=== PATIENT | female | born 1945 | race Two or more races ===

== ENCOUNTER 2018-12-08 13:01 | Observation (INO) | payer OTHER ==
[2018-12-08 13:31] VITALS: BMI 32.5
[2018-12-08 16:13] LABS: BASO % 0.5 % (0-2.0); EOS % 4.3 % (0-4.5); HEMATOCRIT 35.5 % (32.4-45.2); HEMOGLOBIN 11.8 GM/dL (10.7-15.3); MCH 30.4 pg (25.7-33.7); MCHC 33.1 g/dl (32.0-36.0); MEAN CELL VOLUME 91.6 fl (80-96); MEAN PLT VOLUME 11.3 fl (7.5-11.1); MONO % 11.6 % (3.8-10.2); NEUT % 56.6 % (42.8-82.8); PLATELET COUNT 112 K/MM3 (134-434); RBC 3.88 M/mm3 (3.60-5.2); WHITE BLOOD COUNT 6.4 K/mm3 (4.0-10.0)
--- NOTE | 2018-12-08 16:30 | PDOC ---
Documentation entered by Swapnil Karimi SCRIBE, acting as scribe for Ismael Oates MD. Ismael Oates MD: This documentation has been prepared by the Sachi khan Xhesika, SCRIBE, under my direction and personally reviewed by me in its entirety. I confirm that the documentation accurately reflects all work, treatment, procedures, and medical decision making performed by me. History of Present Illness - General Chief Complaint: Chest Pain Stated Complaint: CHEST PAIN Time Seen by Provider: 12/08/18 15:27 History Source: Patient Exam Limitations: No Limitations, Language Barrier (patient is lithuanian speaking ) - History of Present Illness Initial Comments: 12/08/18 15:45 The patient is a 73 year old female, with a significant PMH of COPD, HTN, HLD , and hypothyroidism who presents to the emergency department with L sided chest pain since last night. The patient states the chest pain is nonpleuritic, non radiating, and began last night suddenly after eating. The patient states her chest pain kept her from sleeping, however, the pain eventually subsided before starting again at 11am. The patient denies shortness of breath, headache and dizziness. Denies fever, chills, nausea, vomiting, diarrhea and constipation. Denies dysuria, frequency, urgency and hematuria. Allergies: NKDA PCP: Francie Claros Past History - Past Medical History Allergies/Adverse Reactions: Allergies Allergy/AdvReac Type Severity Reaction Status Date / Time No Known Allergies Allergy Verified 12/08/18 13:20 COPD: No Diabetes: Yes HTN: Yes Hypercholesterolemia: Yes Thyroid Disease: Yes - Suicide/Smoking/Psychosocial Hx Smoking History: Never smoked Have you smoked in the past 12 months: No Information on smoking cessation initiated: No Hx Alcohol Use: No Drug/Substance Use Hx: No Review of Systems - Review of Systems Able to Perform ROS?: Yes Comments:: 12/08/18 15:46 GENERAL/CONSTITUTIONAL: No fever or chills. No weakness. HEAD, EYES, EARS, NOSE AND THROAT: No change in vision. No ear pain or discharge. No sore throat. CARDIOVASCULAR: (+) L sided chest pain. No shortness of breath. RESPIRATORY: No cough, wheezing, or hemoptysis. GASTROINTESTINAL: No nausea, vomiting, diarrhea or constipation. GENITOURINARY: No dysuria, frequency, or change in urination. MUSCULOSKELETAL: No joint or muscle swelling or pain. No neck or back pain. SKIN: No rash NEUROLOGIC: No headache, vertigo, loss of consciousness, or change in strength/ sensation. ENDOCRINE: No increased thirst. No abnormal weight change. HEMATOLOGIC/LYMPHATIC: No anemia, easy bleeding, or history of blood clots. ALLERGIC/IMMUNOLOGIC: No hives or skin allergy. *Physical Exam - Vital Signs Last Vital Signs Temp Pulse Resp BP Pulse Ox 97.9 F 71 16 138/58 L 100 12/08/18 13:15 12/08/18 13:15 12/08/18 13:15 12/08/18 13:15 12/08/18 13:15 - Physical Exam Comments: 12/08/18 16:21 "GENERAL: Awake, alert, and fully oriented, in no acute distress. HEAD: No signs of trauma EYES: PERRLA, EOMI, sclera anicteric, conjunctiva clear ENT: Auricles normal inspection, hearing grossly normal, nares patent, oropharynx clear without exudates. Moist mucosa NECK: Nontender, no stepoffs, Normal ROM, supple, no lymphadenopathy, JVD, or masses LUNGS: Breath sounds equal, clear to auscultation bilaterally. No wheezes, and no crackles HEART: Regular rate and rhythm, normal S1 and S2, no murmurs, rubs or gallops ABDOMEN: Soft, nontender, normoactive bowel sounds. No guarding, no rebound. No masses EXTREMITIES: Normal range of motion, no edema. No clubbing or cyanosis. No cords, erythema, or tenderness NEUROLOGICAL: Cranial nerves II through XII intact. 5/5 strength and sensation in all extremities, Normal speech, normal gait, normal cerebellar function SKIN: Warm, Dry, normal turgor, no rashes or lesions noted. Heart Score/ECG Review - History History: Moderately suspicious - Electrocardiogram EKG: Non specific repolarization disturbance - Age Age: >/= 65 - Risk Factors Risk Factors Heart Score: Yes Hx Hypercholesterolemia, Yes Hx Hypertension, Yes Hx Diabetes, Yes Hx Obesity Based on the list above the patient has:: >/=3 risk factors or Hx atherosclerotic disease - Troponin Troponin: </= normal limit - Score Heart Score - Total: 6 - ECG Impressions Comment:: 12/08/18 16:22 AV paced, rate 65, QTc wnl, no EDVIN/STDs, TWI in lateral leads ED Treatment Course - LABORATORY CBC & Chemistry Diagram: 12/08/18 15:45 12/08/18 15:45 - RADIOLOGY Radiology Studies Ordered: Category Date Time Status CHEST X-RAY PORTABLE* [RAD] Stat Radiology 12/08/18 15:28 Taken Medical Decision Making - Medical Decision Making 12/08/18 16:26 73 F with L sided chest pain. Will need to r/o ACS given risk factors and abnormal EKG. Pt with no pleuritic chest pain or SOB to suggest PE. No LE edema to suggest volume overload. - Labs, trop - CXR - Admit 12/08/18 17:21 Labs wnl, trop negative x1 Attempted to reach Dr. Cooper for admission - no longer accepting pts at this time Will admit to [facility] 12/08/18 17:31 Pt signed out to ZIYAD Garcia *DC/Admit/Observation/Transfer Diagnosis at time of Disposition: Chest pain - Discharge Dispostion Decision to Admit order: Yes - Referrals Referrals: Francie Caro MD [Primary Care Provider] - - Patient Instructions - Post Discharge Activity - Attestations Physician Attestion: 12/08/18 17:22 I, Dr. Ismael Oates MD, attest that this document has been prepared under my direction and personally reviewed by me in its entirety. I further attest, that it accurately reflects all work, treatment, procedures and medical decision -making performed by me.
[2018-12-08 16:56] LABS: ALBUMIN 4.5 g/dl (3.4-5.0); ALK PHOS 117 U/L (45-117); ANION GAP 4 MMOL/L (8-16); BILIRUBIN,TOTAL 0.6 mg/dL (0.2-1); BLOOD UREA NITROGEN 28 mg/dL (7-18); CALCIUM 9.8 mg/dL (8.5-10.1); CHLORIDE 108 mmol/L (98-107); CO2 29 mmol/L (21-32); CREATININE 1.4 mg/dL (0.55-1.3); GLUCOSE,RANDOM 61 mg/dL (74-106); N-TERMINAL BNP 153.6 pg/ml (5-125); POTASSIUM 4.8 mmol/L (3.5-5.1); SGOT/AST 40 U/L (15-37); SGPT/ALT 37 U/L (13-61); SODIUM 140 mmol/L (136-145); TOT PROT 7.8 g/dl (6.4-8.2)
[2018-12-08] MEDS ORDERED: ACETAMINOPHEN 1000 MG/100 ML VIAL (NON FORMULARY) IVPB ONE (17:06)
[2018-12-08] MEDS ORDERED: ACETAMINOPHEN INJECTION 100 ML IVPB ONE (17:17)
--- NOTE | 2018-12-08 17:50 | HP ---
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 The patient states the chest pain is nonpleuritic, radiating to back, and began yesterday after she was carrying a heavy object. The patient states it resolved but then woke her from sleep and then again resolved. It began again at 11am, she had an appointment with Dr Li she stated that he did not think it "was her heart" She then came to the ED because it persisited. Patient stated the battery for her PPM was changed last week. The patient denies shortness of breath, headache and dizziness. Denies fever, chills, nausea, vomiting, diarrhea and constipation. History Source: Patient Limitations to Obtaining History: No Limitations - Past Medical History Cardiovascular: Yes: HTN, Hyperlipdemia, Other (2nd degree AVB w/ PPM 1980, battery replaced last week) Pulmonary: Yes: COPD Endocrine: Yes: Hyperthyroidism - Past Surgical History Past Surgical History: Yes: Permanent Pacemaker (1980) - Smoking History Smoking history: Never smoked Have you smoked in the past 12 months: No - Alcohol/Substance Use Hx Alcohol Use: No - Social History Usual Living Arrangement: Yes: With Spouse ADL: Independent History of Recent Travel: No Home Medications - Allergies Allergies/Adverse Reactions: Allergies Allergy/AdvReac Type Severity Reaction Status Date / Time No Known Allergies Allergy Verified 12/08/18 13:20 Family Disease History - Family Disease History Family History: Unable to Obtain Review of Systems - Review of Systems Constitutional: reports: No Symptoms Eyes: reports: No Symptoms HENT: reports: Difficult Swallowing (secondary to dry mouth) Neck: reports: No Symptoms Cardiovascular: reports: Chest Pain (radiating to right thoracic area) Respiratory: reports: No Symptoms Gastrointestinal: reports: Indigestion Genitourinary: reports: No Symptoms Breasts: reports: No Symptoms Reported Musculoskeletal: reports: Muscle Pain (left thoracic) Integumentary: reports: No Symptoms Neurological: reports: No Symptoms Endocrine: reports: No Symptoms Hematology/Lymphatic: reports: No Symptoms Psychiatric: reports: No Symptoms Physical Examination Vital Signs: Vital Signs Temperature 97.9 F 12/08/18 13:15 Pulse Rate 71 12/08/18 13:15 Respiratory Rate 16 12/08/18 13:15 Blood Pressure 138/58 L 12/08/18 13:15 O2 Sat by Pulse Oximetry (%) 99 12/08/18 16:03 Constitutional: Yes: Well Nourished, No Distress, Calm Eyes: Yes: WNL, Conjunctiva Clear, EOM Intact HENT: Yes: WNL, Atraumatic Neck: Yes: WNL, Supple, Trachea Midline Cardiovascular: Yes: WNL, Regular Rate and Rhythm, Bradycardia, Other (PPM to left) Respiratory: Yes: WNL, Regular, CTA Bilaterally Gastrointestinal: Yes: WNL, Normal Bowel Sounds, Soft Breast(s): Yes: WNL Musculoskeletal: Yes: Muscle Pain (to left thoracic area) Extremities: Yes: WNL Edema: No Peripheral Pulses WNL: Yes Integumentary: Yes: WNL Neurological: Yes: WNL, Alert, Oriented ...Motor Strength: WNL Psychiatric: Yes: WNL, Alert, Oriented Labs: CBC, BMP 12/08/18 15:45 12/08/18 15:45 Imaging - Results Chest X-ray: Report Reviewed, Image Reviewed (PPM, no ellufsion, no infiltartes noted) EKG: Report Reviewed, Image Reviewed (AV paced, rate 65, QTc wnl, TWI in lateral leads) Other: Report Reviewed (TTE 12/08 EF 55-60%, mild TR) Problem List - Problems (1) Musculoskeletal chest pain Assessment/Plan: tylenol/motrin PRN for left thoracic pain -if pain persists can order flexeril Code(s): R07.89 - OTHER CHEST PAIN (2) Chest pain Assessment/Plan: cardiac vs musculoskeletal in nature -ekg AV paced, rate 65, QTc wnl, TWI in lateral leads -trop negative, repeat in 12 hours -PPM AV paced -maintain home dose of eliquis Code(s): R07.9 - CHEST PAIN, UNSPECIFIED (3) Hypothyroidism Assessment/Plan: continue home dose of synthroid send TSH Code(s): E03.9 - HYPOTHYROIDISM, UNSPECIFIED (4) HTN (hypertension) Assessment/Plan: HTN, normotensive continue home dose of losartan Code(s): I10 - ESSENTIAL (PRIMARY) HYPERTENSION (5) Diabetes Assessment/Plan: NIDDM contine home dose of glyberide BGM AC/qhs novolog insulin sliding scale Code(s): E11.9 - TYPE 2 DIABETES MELLITUS WITHOUT COMPLICATIONS (6) Prophylactic measure Assessment/Plan: FEN cardiac diet monitor electrolytes Prophy ambulatory Dispo maintain as in patient full code Code(s): Z29.9 - ENCOUNTER FOR PROPHYLACTIC MEASURES, UNSPECIFIED Visit type - Emergency Visit Emergency Visit: Yes ED Registration Date: 12/08/18 Care time: The patient presented to the Emergency Department on the above date and was hospitalized for further evaluation of their emergent condition. - New Patient This patient is new to me today: Yes Date on this admission: 12/08/18 - Critical Care Critical Care patient: No
[2018-12-08] MEDS ORDERED: IBUPROFEN 600 MG TABLET (FP) PO PRN (18:27)
[2018-12-08] MEDS ORDERED: APIXABAN 5 MG TABLET PO ONE (21:40)
[2018-12-08] MEDS: APIXABAN 5 MG TABLET PO SCH (21:43)
[2018-12-08] MEDS ORDERED: APIXABAN 5 MG TABLET PO SCH (22:00)
[2018-12-09 06:07] LABS: BASO % 1.3 % (0-2.0); EOS % 4.9 % (0-4.5); HEMATOCRIT 34.8 % (32.4-45.2); HEMOGLOBIN 11.6 GM/dL (10.7-15.3); LYMPH % 29.7 % (8-40); MCH 30.6 pg (25.7-33.7); MCHC 33.3 g/dl (32.0-36.0); MEAN CELL VOLUME 91.9 fl (80-96); MEAN PLT VOLUME 11.7 fl (7.5-11.1); MONO % 12.4 % (3.8-10.2); NEUT % 51.7 % (42.8-82.8); RBC 3.79 M/mm3 (3.60-5.2); RDW 13.4 % (11.6-15.6); WHITE BLOOD COUNT 5.6 K/mm3 (4.0-10.0)
[2018-12-09] MEDS: glyBURIDE 5 MG TABLET (UD) PO SCH ×2 (06:39→17:16)
[2018-12-09 06:44] LABS: ALBUMIN 3.8 g/dl (3.4-5.0); BILIRUBIN,TOTAL 0.6 mg/dL (0.2-1); CALCIUM 9.3 mg/dL (8.5-10.1); CREATININE 1.4 mg/dL (0.55-1.3); POTASSIUM 4.9 mmol/L (3.5-5.1); TOT PROT 6.9 g/dl (6.4-8.2)
[2018-12-09] MEDS ORDERED: LEVOTHYROXINE NA 125 MCG TABLET (FP) PO SCH (07:00)
--- NOTE | 2018-12-09 09:15 | PN ---
Progress Note, Physician Chief Complaint: 73F outpatient of [facility] seen in office yesterday with atypical CP. Sharp discomfort radiating to left shoulder. No SOB, palps, edema, syncope. ECG in office V- paced. Sent for outpatient Echo which was nl. Patient then went to ER for chest pain. TnI - x 2, CXR nl. Seen and examined in ER- now denies CP. Denies SOB. No fever, chills or cough. PMH: PAF s/p PPM on NOAC. HTN Hypothyroidism - Current Medication List Current Medications: Active Medications Apixaban (Eliquis -) 5 mg PO DAILY [facility] Last Admin: 12/08/18 21:43 Dose: 5 mg Glyburide (Diabeta -) 5 mg PO BIDAC [facility] Last Admin: 12/09/18 06:39 Dose: 5 mg Levothyroxine Sodium (Synthroid -) 125 mcg PO DAILY@0700 [facility] Last Admin: 12/09/18 06:39 Dose: 125 mcg Losartan Potassium (Cozaar -) 25 mg PO DAILY [facility] - Objective Vital Signs: Vital Signs Temperature 97.6 F 12/09/18 05:04 Pulse Rate 72 12/09/18 06:40 Respiratory Rate 20 12/09/18 06:40 Blood Pressure 136/62 12/09/18 06:40 O2 Sat by Pulse Oximetry (%) 100 12/09/18 06:40 Constitutional: Yes: No Distress Cardiovascular: Yes: Regular Rate and Rhythm Respiratory: Yes: CTA Bilaterally Gastrointestinal: Yes: Soft, Abdomen, Obese Edema: No Neurological: Yes: Alert Labs: CBC, BMP 12/09/18 05:35 12/09/18 05:35 Laboratory Tests 12/08/18 12/09/18 12/09/18 15:45 00:20 05:35 WBC 5.6 Hgb 11.6 Plt Count Pending Potassium Creatinine Troponin I < 0.02 < 0.02 B-Natriuretic Peptide 153.6 H 12/09/18 05:35 WBC Hgb Plt Count Potassium 4.9 Creatinine 1.4 H Troponin I B-Natriuretic Peptide - ....Imaging EKG: Image Reviewed (Paced, no acute changes) Assessment/Plan IMP: 1. PAF s/p PPM 2. Hypothyroidism 3. Atypical CP: cardiac enzymes negative REC: 1. Echo yesterday normal LV fx, no pericardial effusion. 2. CXR WNL 3. Plan for Lexiscan MPI today, further reccs to follow.
[2018-12-09 09:16] LABS: PLATELET COUNT 130.6 K/MM3 (134-434)
[2018-12-09] MEDS ORDERED: PT OWN MED DRAWER 7, Y5N ONE ×2 (09:29→16:46)
[2018-12-09] MEDS ORDERED: REGADENOSON 0.4 MG/5 ML PRE-FILLED SYRINGE IVPUSH ONE ×2 (09:45→10:23)
[2018-12-09] MEDS ORDERED: LOSARTAN POTASSIUM 50 MG TABLET (FP) PO SCH (10:00)
[2018-12-09] MEDS ORDERED: APIXABAN 5 MG TABLET PO SCH (10:00)
[2018-12-09] MEDS ORDERED: LOSARTAN POTASSIUM 25 MG TABLET PO SCH (10:00)
[2018-12-09] MEDS: APIXABAN 5 MG TABLET PO SCH (12:10)
[2018-12-09 12:13] VITALS: BP 130/63; PULSE 61; TEMP 97.7
[2018-12-09] MEDS ORDERED: INSULIN (NOVOLOG) ASPART 100 UNITS/ML 10ML VIAL ONE (12:13)
--- NOTE | 2018-12-09 12:26 | EKG ---
Test Reason : Blood Pressure : / mmHG Vent. Rate : 060 BPM Atrial Rate : 060 BPM P-R Int : 160 ms QRS Dur : 166 ms QT Int : 474 ms P-R-T Axes : 000 -54 087 degrees QTc Int : 474 ms AV dual-paced rhythm ABNORMAL ECG WHEN COMPARED WITH ECG OF 04-MAR-2004 13:33, VENT. RATE HAS DECREASED BY 43 BPM Confirmed by NICOLÁS NULL MD ([id number]) on 12/09/2018 12:25:43 PM Referred By: JEANNE HAYNES DR Confirmed By:NICOLÁS NULL MD
--- NOTE | 2018-12-09 14:06 | DS ---
Physical Examination Vital Signs: Vital Signs Temperature 97.7 F 12/09/18 12:11 Pulse Rate 61 12/09/18 12:11 Respiratory Rate 18 12/09/18 12:11 Blood Pressure 130/63 12/09/18 12:11 O2 Sat by Pulse Oximetry (%) 98 12/09/18 12:11 Constitutional: Yes: Calm Cardiovascular: Yes: Regular Rate and Rhythm, S1, S2 Respiratory: Yes: CTA Bilaterally Gastrointestinal: Yes: Normal Bowel Sounds, Soft Extremities: Yes: Other (calf pain in left side) Neurological: Yes: Alert, Oriented Labs: CBC, BMP 12/09/18 05:35 12/09/18 05:35 Discharge Summary Reason For Visit: CHEST PAIN Current Active Problems Chest pain (Acute) Diabetes (Acute) HTN (hypertension) (Acute) Hypothyroidism (Acute) Musculoskeletal chest pain (Acute) Prophylactic measure (Acute) Hospital Course: PCP: Francie Caro I - Admission Chief Complaint: chest pain History of Present Illness: The patient is a 73 year old female, with a significant PMH of COPD, HTN, HLD , 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 The patient states the chest pain is nonpleuritic, radiating to back, and began yesterday after she was carrying a heavy object. The patient states it resolved but then woke her from sleep and then again resolved. It began again at 11am, she had an appointment with Dr Li she stated that he did not think it "was her heart" She then came to the ED because it persisited. Patient stated the battery for her PPM was changed last week. The patient denies shortness of breath, headache and dizziness. Denies fever, chills, nausea, vomiting, diarrhea and constipation. patient admitted had ECHO and CXR unremarkable has rachna awaiting complaining of calf pain will order doppler r/o dvt - Instructions - Home Medications Comprehensive Discharge Medication List: Ambulatory Orders Alendronate Sodium/Vitamin D3 [Fosamax Plus D 70 mg-5,600 Iu vIT d] 1 tab PO DAILY 12/08/18 Apixaban [Eliquis] 5 mg PO DAILY 12/08/18 Fexofenadine/Pseudoephedrine [Arin-D 24 Hour Tablet] 1 tab PO DAILY 12/08/18 Glipizide [Glucotrol Xl] 5 mg PO DAILY 12/08/18 Levothyroxine [Synthroid -] 125 mcg PO DAILY 12/08/18 Losartan Potassium 25 mg PO DAILY 12/08/18
--- NOTE | 2018-12-09 14:09 | PN ---
Progress Note (short form) - Note Progress Note: admitted to observation telemetry got echo and cxr normal seen by cardiology plan awaiting results of lexiscan and duplex of the legs bc complaining of calf pain pending results of lexiscan will decide discharge
--- NOTE | 2018-12-10 08:49 | EKG ---
Test Reason : Blood Pressure : / mmHG Vent. Rate : 065 BPM Atrial Rate : 065 BPM P-R Int : 176 ms QRS Dur : 164 ms QT Int : 444 ms P-R-T Axes : 024 -54 090 degrees QTc Int : 461 ms Atrial-sensed ventricular-paced rhythm ABNORMAL ECG WHEN COMPARED WITH ECG OF 04-MAR-2004 13:33, VENT. RATE HAS DECREASED BY 38 BPM Confirmed by TARAN PENN, CRISTIN ([id number]) on 12/10/2018 8:48:49 AM Referred By: Confirmed By:CRISTIN CHIRINOS MD
== END 2018-12-09 17:17 | disposition home or self-care (01) ==
LOC: JER 13:01 → JERBED 17:22
PROVIDERS: ATTEND Nurse Practitioner Acute Care
PROC: 3E033NZ Introduction of Analgesics, Hypnotics, Sedatives into Peripheral Vein, Percutaneous Approach (ICD-10-PCS; principal; 2018-12-08)
PROC: 3E033GC Introduction of Other Therapeutic Substance into Peripheral Vein, Percutaneous Approach (ICD-10-PCS; 2018-12-08)
DX: R07.89 Other chest pain (principal); I10 Essential (primary) hypertension; E78.5 Hyperlipidemia, unspecified; E03.9 Hypothyroidism, unspecified; E11.9 Type 2 diabetes mellitus without complications; J44.9 Chronic obstructive pulmonary disease, unspecified; Z95.0 Presence of cardiac pacemaker
CPT/HCPCS: 36415; 71045-TC-FY; 78452-TC; 80048; 80053; 82550; 82553; 82962; 83880; 84443; 84484; 85025; 87081; 93005; 93010; 93017; 93970-TC; 96374; 96375; 99285-25; A9502; G0378; J0131; J2785

== ENCOUNTER 2021-09-26 14:44 | Inpatient (IN) | payer OTHER ==
[2021-09-26] MEDS ORDERED: ALBUTEROL SO4 2.5/IPRATROPIUM 0.5 INH SOL 3 ML VIAL.NEB. NEB ONE ×3 (15:58→18:33)
[2021-09-26] MEDS ORDERED: methylPREDNISolone NA SUCC 125 MG/2 ML VIAL IVPUSH ONE (15:58)
[2021-09-26] MEDS ORDERED: methylPREDNISolone NA SUCC 125 MG/2 ML VIAL ONE (16:25)
[2021-09-26 16:53] LABS: BASO % 0.2 % (0-2.0); EOS % 3.8 % (0-4.5); HEMATOCRIT 27.9 % (32.4-45.2); HEMOGLOBIN 9.6 GM/dL (10.7-15.3); LYMPH % 21.8 % (8-40); MCH 30.7 pg (25.7-33.7); MCHC 34.4 g/dl (32.0-36.0); MEAN CELL VOLUME 89.3 fl (80-96); MEAN PLT VOLUME 10.8 fl (7.5-11.1); MONO % 11.1 % (3.8-10.2); NEUT % 63.1 % (42.8-82.8); PLATELET COUNT 136 10^3/uL (134-434); RBC 3.12 M/mm3 (3.60-5.2); RDW 13.1 % (11.6-15.6); WHITE BLOOD COUNT 5.7 K/mm3 (4.0-10.0)
[2021-09-26 16:58] LABS: EPI CELLS 5 /uL (0-25.1); HYALINE CASTS 1 /uL (0-3.1); URINE APPEARANCE CLEAR; URINE BACTERIA 168 /uL (0-1359); URINE BILIRUBIN NEGATIVE (NEGATIVE); URINE COLOR YELLOW; URINE GLUCOSE (UA) NEGATIVE (NEGATIVE); URINE KETONE NEGATIVE (NEGATIVE); URINE LEUK ESTERASE 2+ (NEGATIVE); URINE NITRITE NEGATIVE (NEGATIVE); URINE PROTEIN TRACE (NEGATIVE); URINE RBC 6 /uL (0-23.9); URINE UROBILINOGEN 0.2 mg/dL (0.2-1.0); URINE WBC 407 /uL (0-25.8)
[2021-09-26 17:16] LABS: CALCIUM 9.1 mg/dL (8.5-10.1)
[2021-09-26 17:17] LABS: ALBUMIN 3.9 g/dl (3.4-5.0); BLOOD UREA NITROGEN 45.5 mg/dL (7-18)
[2021-09-26 17:20] LABS: CREATININE 1.7 mg/dL (0.55-1.3)
[2021-09-26 17:22] LABS: BILIRUBIN,TOTAL 0.3 mg/dL (0.2-1); TOT PROT 7.4 g/dl (6.4-8.2)
[2021-09-26] MEDS ORDERED: CEFTRIAXONE 1 GM in DEXTROSE 5%-WATER - 100 ML IVPB ONE (18:37)
[2021-09-26] MEDS ORDERED: CEFTRIAXONE 1 GM/50 ML BAG ONE (18:43)
[2021-09-26] MEDS ORDERED: ALBUTEROL SO4 2.5/IPRATROPIUM 0.5 INH SOL 3 ML VIAL.NEB. NEB PRN (21:44)
[2021-09-26] MEDS ORDERED: LEVOTHYROXINE NA 112 MCG TABLET (FP) PO ONE (23:15)
[2021-09-26] MEDS ORDERED: ATORVASTATIN CA 10 MG TABLET (FP) PO ONE (23:15)
[2021-09-27] MEDS ORDERED: APIXABAN 5 MG TABLET ONE (01:10)
[2021-09-27] MEDS ORDERED: ATORVASTATIN CA 10 MG TABLET (FP) ONE (01:10)
[2021-09-27] MEDS ORDERED: methylPREDNISolone NA SUCC 40 MG/1 ML VIAL ONE (01:11)
[2021-09-27] MEDS: APIXABAN 5 MG TABLET PO SCH ×3 (01:15→22:14)
[2021-09-27] MEDS: methylPREDNISolone NA SUCC 40 MG/1 ML VIAL IVPUSH SCH ×3 (01:15→17:15)
[2021-09-27 06:50] VITALS: BMI 28.7
[2021-09-27] MEDS: LEVOTHYROXINE NA 112 MCG TABLET (FP) PO SCH (06:53)
[2021-09-27 07:04] LABS: BASO % 0.1 % (0-2.0); HEMATOCRIT 29.8 % (32.4-45.2); HEMOGLOBIN 9.9 GM/dL (10.7-15.3); MCH 30.3 pg (25.7-33.7); MCHC 33.4 g/dl (32.0-36.0); MEAN CELL VOLUME 90.7 fl (80-96); MEAN PLT VOLUME 11.3 fl (7.5-11.1); MONO % 1.5 % (3.8-10.2); NEUT % 89.4 % (42.8-82.8); PLATELET COUNT 151 10^3/uL (134-434); RBC 3.28 M/mm3 (3.60-5.2); RDW 13.3 % (11.6-15.6); WHITE BLOOD COUNT 7.5 K/mm3 (4.0-10.0)
[2021-09-27 07:28] LABS: BLOOD UREA NITROGEN 47.1 mg/dL (7-18); CALCIUM 9.7 mg/dL (8.5-10.1)
[2021-09-27 07:33] LABS: BILIRUBIN,TOTAL 0.4 mg/dL (0.2-1); TOT PROT 7.8 g/dl (6.4-8.2)
[2021-09-27] MEDS: INSULIN SLIDING SCALE (NOVOLOG) 1 VIAL SQ SCH ×4 (08:42→22:14)
[2021-09-27] MEDS ORDERED: cefTRIAXone SODIUM 1 GM VIAL ONE (09:38)
[2021-09-27] MEDS ORDERED: DEXTROSE 5%-WATER - 50 ML IVPB ONE (09:38)
[2021-09-27] MEDS: CEFTRIAXONE 1 GM in DEXTROSE 5%-WATER - 50 ML IVPB SCH (09:45)
[2021-09-27] MEDS ORDERED: LOSARTAN POTASSIUM 50 MG TABLET PO SCH (10:00)
[2021-09-27] MEDS: SODIUM CHLORIDE 1,000 ML IV SCH (11:01)
[2021-09-27] MEDS: ALBUTEROL SO4 2.5/IPRATROPIUM 0.5 INH SOL 3 ML VIAL.NEB. NEB SCH ×2 (14:58→20:15)
[2021-09-27 14:59] LABS: PH,URINE 5.5 (5.0-8.0); URINE APPEARANCE CLEAR; URINE BILIRUBIN NEGATIVE (NEGATIVE); URINE COLOR YELLOW; URINE GLUCOSE (UA) 2+ (NEGATIVE); URINE KETONE NEGATIVE (NEGATIVE); URINE LEUK ESTERASE NEGATIVE (NEGATIVE); URINE NITRITE NEGATIVE (NEGATIVE); URINE PROTEIN TRACE (NEGATIVE); URINE UROBILINOGEN 0.2 mg/dL (0.2-1.0)
[2021-09-27] MEDS ORDERED: SODIUM ZIRCONIUM CYCLOSILICATE (LOKELMA) 5 GM PACKET PO ONE (16:00)
[2021-09-27] MEDS: ATORVASTATIN CA 10 MG TABLET (FP) PO SCH (22:14)
[2021-09-28] MEDS: methylPREDNISolone NA SUCC 40 MG/1 ML VIAL IVPUSH SCH ×3 (01:42→17:25)
[2021-09-28] MEDS: LEVOTHYROXINE NA 112 MCG TABLET (FP) PO SCH (06:33)
[2021-09-28] MEDS: INSULIN SLIDING SCALE (NOVOLOG) 1 VIAL SQ SCH ×4 (06:35→21:37)
[2021-09-28] MEDS: ALBUTEROL SO4 2.5/IPRATROPIUM 0.5 INH SOL 3 ML VIAL.NEB. NEB SCH ×3 (07:44→20:24)
[2021-09-28 09:04] LABS: CALCIUM 8.5 mg/dL (8.5-10.1)
[2021-09-28 09:05] LABS: ALBUMIN 3.3 g/dl (3.4-5.0); BLOOD UREA NITROGEN 51.6 mg/dL (7-18); MAGNESIUM 2.4 mg/dL (1.8-2.4)
[2021-09-28 09:06] LABS: CREATININE 1.8 mg/dL (0.55-1.3)
[2021-09-28 09:07] LABS: PHOSPHOROUS 3.4 mg/dL (2.5-4.9)
[2021-09-28 09:08] LABS: BILIRUBIN,TOTAL 0.3 mg/dL (0.2-1); TOT PROT 6.3 g/dl (6.4-8.2)
[2021-09-28 09:29] LABS: HEMOGLOBIN 8.5 GM/dL (10.7-15.3); MCH 29.8 pg (25.7-33.7); MCHC 32.8 g/dl (32.0-36.0); MEAN CELL VOLUME 91.1 fl (80-96); MEAN PLT VOLUME 11.6 fl (7.5-11.1); PLATELET COUNT 135 10^3/uL (134-434); RBC 2.86 M/mm3 (3.60-5.2); RDW 13.2 % (11.6-15.6); WHITE BLOOD COUNT 12.4 K/mm3 (4.0-10.0)
[2021-09-28] MEDS ORDERED: cefTRIAXone SODIUM 1 GM VIAL ONE (10:34)
[2021-09-28] MEDS ORDERED: DEXTROSE 5%-WATER - 50 ML IVPB ONE (10:35)
[2021-09-28] MEDS: CEFTRIAXONE 1 GM in DEXTROSE 5%-WATER - 50 ML IVPB SCH (10:37)
[2021-09-28] MEDS: APIXABAN 5 MG TABLET PO SCH ×2 (10:38→21:38)
[2021-09-28] MEDS: SODIUM CHLORIDE 1,000 ML IV SCH (10:40)
[2021-09-28] MEDS ORDERED: SODIUM ZIRCONIUM CYCLOSILICATE (LOKELMA) 10 GM PACKET PO ONE (12:00)
[2021-09-28 12:03] LABS: ANISOCYTOSIS 0; MACROCYTOSIS 0
[2021-09-28] MEDS: ATORVASTATIN CA 10 MG TABLET (FP) PO SCH (21:38)
[2021-09-29] MEDS: methylPREDNISolone NA SUCC 40 MG/1 ML VIAL IVPUSH SCH (01:14)
[2021-09-29] MEDS: INSULIN SLIDING SCALE (NOVOLOG) 1 VIAL SQ SCH ×4 (06:29→21:14)
[2021-09-29] MEDS: SODIUM CHLORIDE 1,000 ML IV SCH (06:30)
[2021-09-29] MEDS: LEVOTHYROXINE NA 112 MCG TABLET (FP) PO SCH (06:30)
[2021-09-29 07:42] LABS: BASO % 0.1 % (0-2.0); HEMATOCRIT 25.9 % (32.4-45.2); HEMOGLOBIN 8.8 GM/dL (10.7-15.3); LYMPH % 5.8 % (8-40); MCH 30.5 pg (25.7-33.7); MCHC 33.8 g/dl (32.0-36.0); MEAN CELL VOLUME 90.1 fl (80-96); MEAN PLT VOLUME 11.4 fl (7.5-11.1); MONO % 2.7 % (3.8-10.2); NEUT % 91.4 % (42.8-82.8); PLATELET COUNT 138 10^3/uL (134-434); RBC 2.87 M/mm3 (3.60-5.2); RDW 13.4 % (11.6-15.6); WHITE BLOOD COUNT 10.3 K/mm3 (4.0-10.0)
[2021-09-29 08:13] LABS: BLOOD UREA NITROGEN 49.8 mg/dL (7-18)
[2021-09-29 08:16] LABS: CALCIUM 8.1 mg/dL (8.5-10.1); CREATININE 1.6 mg/dL (0.55-1.3)
[2021-09-29 08:17] LABS: PHOSPHOROUS 3.8 mg/dL (2.5-4.9)
[2021-09-29] MEDS: ALBUTEROL SO4 2.5/IPRATROPIUM 0.5 INH SOL 3 ML VIAL.NEB. NEB SCH ×3 (08:30→20:30)
[2021-09-29 09:18] LABS: ANISOCYTOSIS 0; MACROCYTOSIS 0
[2021-09-29] MEDS: predniSONE 20 MG TABLET (UD) PO SCH ×2 (09:56→21:15)
[2021-09-29] MEDS: CEFUROXIME AXETIL 250 MG TABLET PO SCH ×2 (09:56→21:15)
[2021-09-29] MEDS: APIXABAN 5 MG TABLET PO SCH ×2 (09:56→21:15)
[2021-09-29] MEDS ORDERED: ACETAMINOPHEN 325 MG TABLET (FP) PO PRN (20:28)
[2021-09-29] MEDS: ATORVASTATIN CA 10 MG TABLET (FP) PO SCH (21:15)
[2021-09-30] MEDS: INSULIN SLIDING SCALE (NOVOLOG) 1 VIAL SQ SCH (07:08)
[2021-09-30] MEDS: LEVOTHYROXINE NA 112 MCG TABLET (FP) PO SCH (07:08)
[2021-09-30 07:42] LABS: BLOOD UREA NITROGEN 49.5 mg/dL (7-18); CALCIUM 8.4 mg/dL (8.5-10.1)
[2021-09-30 07:46] LABS: CREATININE 1.5 mg/dL (0.55-1.3)
[2021-09-30] MEDS: ALBUTEROL SO4 2.5/IPRATROPIUM 0.5 INH SOL 3 ML VIAL.NEB. NEB SCH (08:37)
[2021-09-30 09:31] VITALS: BP 117/52; PULSE 70; TEMP 98.6
[2021-09-30] MEDS: predniSONE 20 MG TABLET (UD) PO SCH (09:37)
[2021-09-30] MEDS: CEFUROXIME AXETIL 250 MG TABLET PO SCH (09:37)
[2021-09-30] MEDS: APIXABAN 5 MG TABLET PO SCH (09:37)
== END 2021-09-30 12:45 | disposition home or self-care (01) | DRG 202 ==
LOC: JER 14:44 → JERBED 19:33 → J4S 09-27 06:26 → OBSVTOIN 09-27 08:43
PROVIDERS: ADMIT Internal Medicine; ATTEND Family Medicine
DX: J45.901 Unspecified asthma with (acute) exacerbation (principal); N39.0 Urinary tract infection, site not specified; J44.1 Chronic obstructive pulmonary disease with (acute) exacerbation; N17.9 Acute kidney failure, unspecified; E11.22 Type 2 diabetes mellitus with diabetic chronic kidney disease; E05.90 Thyrotoxicosis, unspecified without thyrotoxic crisis or storm; E03.9 Hypothyroidism, unspecified; I12.9 Hypertensive chronic kidney disease with stage 1 through stage 4 chronic kidney disease, or unspecified chronic kidney disease; J44.9 Chronic obstructive pulmonary disease, unspecified; D64.9 Anemia, unspecified; N18.9 Chronic kidney disease, unspecified; E78.5 Hyperlipidemia, unspecified; I48.0 Paroxysmal atrial fibrillation; R30.0 Dysuria; E87.5 Hyperkalemia
CPT/HCPCS: 36415; 71045-TC-FY; 76775-TC; 80048; 80053; 81003; 82570; 82728; 82962; 83540; 83550; 83735; 84100; 84156; 84300; 85025; 87086; 87186; 87804; 87807; 93005; 93010; 94640; 99285-25; C9803-CS; G0378; U0003; U0005

== ENCOUNTER 2024-03-21 13:12 | Observation (INO) | payer OTHER ==
[2024-03-21 14:39] LABS: INR 1.08 (0.83-1.09); PROTHROMBIN TIME (PATIENT) 12.2 SEC (9.7-13.0)
[2024-03-21 14:40] LABS: BASO % 0.5 % (0-2.0); HEMATOCRIT 20.8 % (32.4-45.2); MCH 30.6 pg (25.7-33.7); MEAN CELL VOLUME 95.6 fl (80-96); MEAN PLT VOLUME 10.1 fl (7.5-11.1); MONO % 12.2 % (3.8-10.2); NEUT % 56.3 % (42.8-82.8); PLATELET COUNT 155 10^3/uL (134-434); RBC 2.17 M/mm3 (3.60-5.2); RDW 19.9 % (11.6-15.6); WHITE BLOOD COUNT 4.3 K/mm3 (4.0-10.0)
[2024-03-21 14:42] LABS: ACTIVATED PTT 34.8 SECONDS (25.2-36.5)
[2024-03-21 14:48] LABS: HEMOGLOBIN 6.7 GM/dL (10.7-15.3)
[2024-03-21 14:52] LABS: POTASSIUM 4.7 mmol/L (3.5-5.1)
[2024-03-21 14:54] LABS: ALBUMIN 3.4 g/dl (3.4-5.0); BLOOD UREA NITROGEN 27.3 mg/dL (7-18); CALCIUM 8.9 mg/dL (8.5-10.1)
[2024-03-21 14:57] LABS: CREATININE 1.6 mg/dL (0.55-1.3)
[2024-03-21 14:59] LABS: TOT PROT 6.9 g/dl (6.4-8.2)
[2024-03-21 15:14] LABS: BILIRUBIN,TOTAL 0.4 mg/dL (0.2-1)
[2024-03-21 16:47] LABS: HIV INTERPRETATION NEGATIVE (NEGATIVE)
[2024-03-22] MEDS ORDERED: ACETAMINOPHEN 325 MG TABLET (FP) PO PRN (01:09)
[2024-03-22] MEDS ORDERED: DOCUSATE SODIUM 100 MG CAPSULE (FP) PO PRN (01:09)
[2024-03-22 01:33] LABS: RETICULOCYTES 3.89 % (0.5-1.5)
[2024-03-22 01:40] LABS: HEMATOCRIT 26.5 % (32.4-45.2); HEMOGLOBIN 8.7 GM/dL (10.7-15.3); MCH 29.8 pg (25.7-33.7); MCHC 32.7 g/dl (32.0-36.0); MEAN CELL VOLUME 91.2 fl (80-96); PLATELET COUNT 150 10^3/uL (134-434); RBC 2.91 M/mm3 (3.60-5.2); RDW 18.3 % (11.6-15.6); WHITE BLOOD COUNT 5.2 K/mm3 (4.0-10.0)
[2024-03-22 02:55] VITALS: BMI 29.7
[2024-03-22] MEDS: PANTOPRAZOLE 40 MG TABLET PO SCH (06:39)
[2024-03-22] MEDS: LEVOTHYROXINE NA 125 MCG TABLET (FP) PO SCH (06:39)
[2024-03-22] MEDS ORDERED: INSULIN ASPART SLIDING SCALE (NOVOLOG) 1 VIAL SQ ONE (07:57)
[2024-03-22] MEDS ORDERED: ALBUTEROL SO4 2.5/IPRATROPIUM 0.5 INH SOL 3 ML VIAL.NEB. NEB PRN (08:07)
[2024-03-22 08:08] LABS: BASO % 0.5 % (0-2.0); EOS % 5.4 % (0-4.5); LYMPH % 26.3 % (8-40); MCH 30.5 pg (25.7-33.7); MCHC 33.4 g/dl (32.0-36.0); MEAN CELL VOLUME 91.3 fl (80-96); MEAN PLT VOLUME 10.4 fl (7.5-11.1); MONO % 10.5 % (3.8-10.2); NEUT % 57.3 % (42.8-82.8); PLATELET COUNT 151 10^3/uL (134-434); RBC 2.96 M/mm3 (3.60-5.2); RDW 18.4 % (11.6-15.6); WHITE BLOOD COUNT 5.1 K/mm3 (4.0-10.0)
[2024-03-22 08:24] LABS: POTASSIUM 4.4 mmol/L (3.5-5.1)
[2024-03-22 08:27] LABS: BLOOD UREA NITROGEN 23.2 mg/dL (7-18); MAGNESIUM 2.4 mg/dL (1.8-2.4)
[2024-03-22 08:29] LABS: CALCIUM 9.1 mg/dL (8.5-10.1)
[2024-03-22 08:30] LABS: CREATININE 1.4 mg/dL (0.55-1.3)
[2024-03-22] MEDS: INSULIN ASPART SLIDING SCALE (NOVOLOG) 1 VIAL SQ SCH (09:43)
[2024-03-22] MEDS: amLODIPine BESYLATE 5 MG TABLET (FP) PO SCH (09:44)
[2024-03-22] MEDS: SODIUM ZIRCONIUM CYCLOSILICATE (LOKELMA) 5 GM PACKET PO SCH (09:44)
[2024-03-22] MEDS: IRON SUCROSE INJECTION 200 MG in SODIUM CHLORIDE 100 ML IVPB ONE (14:21)
[2024-03-22] MEDS: FERROUS SO4 325 MG TABLET (FP) PO SCH (17:51)
[2024-03-22] MEDS: ATORVASTATIN CA 10 MG TABLET (FP) PO SCH (21:27)
[2024-03-23 08:22] LABS: INR 0.99 (0.83-1.09); PROTHROMBIN TIME (PATIENT) 11.2 SEC (9.7-13.0)
[2024-03-23 08:26] LABS: BASO % 0.5 % (0-2.0); EOS % 5.8 % (0-4.5); HEMATOCRIT 28.7 % (32.4-45.2); HEMOGLOBIN 9.3 GM/dL (10.7-15.3); LYMPH % 24.7 % (8-40); MCH 29.6 pg (25.7-33.7); MCHC 32.3 g/dl (32.0-36.0); MEAN CELL VOLUME 91.5 fl (80-96); MEAN PLT VOLUME 10.4 fl (7.5-11.1); MONO % 12.2 % (3.8-10.2); NEUT % 56.8 % (42.8-82.8); PLATELET COUNT 158 10^3/uL (134-434); RBC 3.14 M/mm3 (3.60-5.2); RDW 18.1 % (11.6-15.6); WHITE BLOOD COUNT 4.6 K/mm3 (4.0-10.0)
[2024-03-23 08:30] LABS: POTASSIUM 4.8 mmol/L (3.5-5.1)
[2024-03-23 08:36] LABS: ALBUMIN 3.2 g/dl (3.4-5.0); BLOOD UREA NITROGEN 21.5 mg/dL (7-18); CALCIUM 9.4 mg/dL (8.5-10.1)
[2024-03-23 08:39] LABS: CREATININE 1.5 mg/dL (0.55-1.3)
[2024-03-23 08:41] LABS: TOT PROT 6.8 g/dl (6.4-8.2)
[2024-03-23 08:42] LABS: BILIRUBIN,TOTAL 0.7 mg/dL (0.2-1)
[2024-03-23] MEDS: PEG 3350/NA SULF BICARB CL/KCL 4000 ML SOLN.RECON PO ONE (17:10)
[2024-03-23] MEDS: BISACODYL 5 MG TABLET.DR (FP) PO ONE (20:02)
[2024-03-24 08:24] LABS: BASO % 0.4 % (0-2.0); EOS % 3.7 % (0-4.5); HEMATOCRIT 29.3 % (32.4-45.2); HEMOGLOBIN 9.8 GM/dL (10.7-15.3); LYMPH % 17.6 % (8-40); MCH 30.3 pg (25.7-33.7); MCHC 33.4 g/dl (32.0-36.0); MEAN CELL VOLUME 90.7 fl (80-96); MEAN PLT VOLUME 10.6 fl (7.5-11.1); MONO % 11.3 % (3.8-10.2); PLATELET COUNT 146 10^3/uL (134-434); RBC 3.23 M/mm3 (3.60-5.2); RDW 17.6 % (11.6-15.6); WHITE BLOOD COUNT 5.5 K/mm3 (4.0-10.0)
[2024-03-24 08:26] LABS: INR 0.98 (0.83-1.09); PROTHROMBIN TIME (PATIENT) 11.3 SEC (9.7-13.0)
[2024-03-24 08:39] LABS: POTASSIUM 4.2 mmol/L (3.5-5.1)
[2024-03-24 08:44] LABS: CALCIUM 8.9 mg/dL (8.5-10.1)
[2024-03-24 08:45] LABS: ALBUMIN 3.5 g/dl (3.4-5.0); BLOOD UREA NITROGEN 24.7 mg/dL (7-18)
[2024-03-24 08:48] LABS: CREATININE 1.7 mg/dL (0.55-1.3)
[2024-03-24 08:50] LABS: BILIRUBIN,TOTAL 0.7 mg/dL (0.2-1); TOT PROT 6.9 g/dl (6.4-8.2)
[2024-03-24] MEDS: VANCOMYCIN/WATER FOR INJ (PEG) 1,000 MG/200 ML BAG IVPB SCH (17:32)
[2024-03-25 08:31] LABS: BASO % 0.5 % (0-2.0); EOS % 2.2 % (0-4.5); HEMATOCRIT 29.6 % (32.4-45.2); HEMOGLOBIN 9.6 GM/dL (10.7-15.3); LYMPH % 21.4 % (8-40); MCH 29.9 pg (25.7-33.7); MCHC 32.5 g/dl (32.0-36.0); MEAN CELL VOLUME 91.8 fl (80-96); MEAN PLT VOLUME 10.9 fl (7.5-11.1); NEUT % 62.9 % (42.8-82.8); PLATELET COUNT 152 10^3/uL (134-434); RBC 3.22 M/mm3 (3.60-5.2); RDW 17.7 % (11.6-15.6); WHITE BLOOD COUNT 6.8 K/mm3 (4.0-10.0)
[2024-03-25] MEDS: APIXABAN 5 MG TABLET PO SCH (10:27)
[2024-03-25] MEDS: ACETAMINOPHEN 325 MG TABLET (FP) PO ONE (22:22)
[2024-03-26 08:23] LABS: POTASSIUM 4.2 mmol/L (3.5-5.1)
[2024-03-26 08:29] LABS: CALCIUM 9.1 mg/dL (8.5-10.1)
[2024-03-26 08:30] LABS: BLOOD UREA NITROGEN 39.9 mg/dL (7-18)
[2024-03-26] MEDS: SODIUM CHLORIDE 0.45% 1,000 ML IV SCH (14:56)
[2024-03-26 18:20] LABS: EPI CELLS 7 /uL (0-25.1); HYALINE CASTS 0 /uL (0-3.1); PH,URINE 5.5 (5.0-8.0); URINE APPEARANCE CLEAR; URINE BACTERIA 14 /uL (0-1359); URINE BILIRUBIN NEGATIVE (NEGATIVE); URINE COLOR YELLOW; URINE GLUCOSE (UA) NEGATIVE (NEGATIVE); URINE KETONE NEGATIVE (NEGATIVE); URINE LEUK ESTERASE NEGATIVE (NEGATIVE); URINE NITRITE NEGATIVE (NEGATIVE); URINE PROTEIN 1+ (NEGATIVE); URINE RBC 20 /uL (0-23.9); URINE UROBILINOGEN 0.2 mg/dL (0.2-1.0); URINE WBC 6 /uL (0-25.8)
[2024-03-27 08:18] LABS: BASO % 0.4 % (0-2.0); EOS % 4.1 % (0-4.5); HEMATOCRIT 26.9 % (32.4-45.2); HEMOGLOBIN 8.7 GM/dL (10.7-15.3); MCH 30.1 pg (25.7-33.7); MCHC 32.4 g/dl (32.0-36.0); MEAN CELL VOLUME 92.7 fl (80-96); MEAN PLT VOLUME 11.2 fl (7.5-11.1); MONO % 11.8 % (3.8-10.2); NEUT % 60.7 % (42.8-82.8); PLATELET COUNT 127 10^3/uL (134-434); RDW 17.6 % (11.6-15.6)
[2024-03-27 08:38] LABS: POTASSIUM 4.6 mmol/L (3.5-5.1)
[2024-03-27 08:49] LABS: CALCIUM 8.9 mg/dL (8.5-10.1)
[2024-03-27 08:50] LABS: BLOOD UREA NITROGEN 37.8 mg/dL (7-18)
[2024-03-27 08:54] LABS: CREATININE 1.7 mg/dL (0.55-1.3)
[2024-03-27 08:55] LABS: BILIRUBIN,TOTAL 0.3 mg/dL (0.2-1); TOT PROT 6.4 g/dl (6.4-8.2)
[2024-03-28 09:37] VITALS: BP 110/52; PULSE 73; RESP 18; TEMP 98.2
[2024-03-28 12:38] LABS: BASO % 0.7 % (0-2.0); EOS % 4.4 % (0-4.5); HEMATOCRIT 28.7 % (32.4-45.2); HEMOGLOBIN 9.1 GM/dL (10.7-15.3); MCH 29.4 pg (25.7-33.7); MCHC 31.6 g/dl (32.0-36.0); MEAN CELL VOLUME 93.3 fl (80-96); MONO % 10.7 % (3.8-10.2); NEUT % 61.2 % (42.8-82.8); PLATELET COUNT 149 10^3/uL (134-434); RBC 3.08 M/mm3 (3.60-5.2); RDW 18.2 % (11.6-15.6); WHITE BLOOD COUNT 5.5 K/mm3 (4.0-10.0)
== END 2024-03-28 14:05 | disposition home or self-care (01) ==
LOC: JER 13:12 → JERBED 15:53 → J4S 03-22 02:16
PROVIDERS: ADMIT Family Medicine; ATTEND Family Medicine
PROC: 0DB58ZX Excision of Esophagus, Via Natural or Artificial Opening Endoscopic, Diagnostic (ICD-10-PCS; principal; 2024-03-21)
PROC: 0DB68ZX Excision of Stomach, Via Natural or Artificial Opening Endoscopic, Diagnostic (ICD-10-PCS; 2024-03-21)
PROC: 3E033GC Introduction of Other Therapeutic Substance into Peripheral Vein, Percutaneous Approach (ICD-10-PCS; 2024-03-21)
PROC: 30233N1 Transfusion of Nonautologous Red Blood Cells into Peripheral Vein, Percutaneous Approach (ICD-10-PCS; 2024-03-21)
PROC: XW0H886 Introduction of Mineral-based Topical Hemostatic Agent into Lower GI, Via Natural or Artificial Opening Endoscopic, New Technology Group 6 (ICD-10-PCS; 2024-03-24)
PROC: 0W3P8ZZ Control Bleeding in Gastrointestinal Tract, Via Natural or Artificial Opening Endoscopic (ICD-10-PCS; 2024-03-24)
DX: D64.89 Other specified anemias (principal); I48.0 Paroxysmal atrial fibrillation; I80.9 Phlebitis and thrombophlebitis of unspecified site; E03.9 Hypothyroidism, unspecified; K44.9 Diaphragmatic hernia without obstruction or gangrene; R94.5 Abnormal results of liver function studies; N18.9 Chronic kidney disease, unspecified; J44.9 Chronic obstructive pulmonary disease, unspecified; E11.22 Type 2 diabetes mellitus with diabetic chronic kidney disease; I12.9 Hypertensive chronic kidney disease with stage 1 through stage 4 chronic kidney disease, or unspecified chronic kidney disease; E78.5 Hyperlipidemia, unspecified; Z95.0 Presence of cardiac pacemaker; Z79.01 Long term (current) use of anticoagulants
CPT/HCPCS: 36415; 36430; 71045-TC-FY; 76700-TC; 76882-TC-RT-FY; 80048; 80053; 81003; 82272; 82550; 82570; 82728; 82962; 82977; 83036; 83540; 83550; 83615; 83735; 84100; 84156; 84300; 84439; 84443; 85025; 85027; 85045; 85610; 85730; 86704; 86708; 86803; 86850; 86900; 86901; 86922; 87040; 87081; 87340; 87389; 87517; 88305-TC; 88342-TC; 93005; 93010; 96360; 96372; 99285-25; G0378; G0480; J1756; P9058

== ENCOUNTER 2024-04-04 14:35 | Inpatient (IN) | payer OTHER ==
[2024-04-04 16:16] LABS: BASO % 0.4 % (0-2.0); EOS % 4.7 % (0-4.5); HEMATOCRIT 22.1 % (32.4-45.2); HEMOGLOBIN 7.1 GM/dL (10.7-15.3); LYMPH % 22.2 % (8-40); MCH 29.9 pg (25.7-33.7); MCHC 32.2 g/dl (32.0-36.0); MEAN CELL VOLUME 92.7 fl (80-96); MONO % 11.3 % (3.8-10.2); NEUT % 61.4 % (42.8-82.8); PLATELET COUNT 148 10^3/uL (134-434); RBC 2.38 M/mm3 (3.60-5.2); RDW 17.9 % (11.6-15.6); WHITE BLOOD COUNT 5.7 K/mm3 (4.0-10.0)
[2024-04-04 16:59] LABS: POTASSIUM 4.4 mmol/L (3.5-5.1)
[2024-04-04 17:04] LABS: BLOOD UREA NITROGEN 37.7 mg/dL (7-18)
[2024-04-04 17:05] LABS: ALBUMIN 3.3 g/dl (3.4-5.0)
[2024-04-04 17:08] LABS: CREATININE 1.7 mg/dL (0.55-1.3)
[2024-04-04 17:09] LABS: BILIRUBIN,TOTAL 0.3 mg/dL (0.2-1)
[2024-04-04 17:10] LABS: TOT PROT 6.5 g/dl (6.4-8.2)
[2024-04-04 17:19] LABS: INR 1.05 (0.83-1.09); PROTHROMBIN TIME (PATIENT) 11.8 SEC (9.7-13.0)
[2024-04-04 17:22] LABS: ACTIVATED PTT 30.3 SECONDS (25.2-36.5)
[2024-04-04 18:08] VITALS: BMI 28.4
[2024-04-05] MEDS: LEVOTHYROXINE NA 112 MCG TABLET (FP) PO SCH (06:32)
[2024-04-05] MEDS: PANTOPRAZOLE 40 MG TABLET PO SCH ×2 (06:32→21:23)
[2024-04-05 07:59] LABS: BASO % 0.5 % (0-2.0); EOS % 5.3 % (0-4.5); HEMATOCRIT 24.5 % (32.4-45.2); HEMOGLOBIN 8.1 GM/dL (10.7-15.3); LYMPH % 23.8 % (8-40); MCH 30.3 pg (25.7-33.7); MEAN CELL VOLUME 91.8 fl (80-96); MONO % 10.9 % (3.8-10.2); NEUT % 59.5 % (42.8-82.8); PLATELET COUNT 143 10^3/uL (134-434); RBC 2.66 M/mm3 (3.60-5.2); RDW 17.3 % (11.6-15.6); WHITE BLOOD COUNT 5.4 K/mm3 (4.0-10.0)
[2024-04-05 08:20] LABS: POTASSIUM 4.5 mmol/L (3.5-5.1)
[2024-04-05 08:22] LABS: CALCIUM 8.7 mg/dL (8.5-10.1)
[2024-04-05 08:23] LABS: BLOOD UREA NITROGEN 30.6 mg/dL (7-18)
[2024-04-05 08:26] LABS: CREATININE 1.5 mg/dL (0.55-1.3)
[2024-04-05 08:27] LABS: BILIRUBIN,TOTAL 0.9 mg/dL (0.2-1)
[2024-04-05] MEDS: ATORVASTATIN CA 10 MG TABLET (FP) PO SCH (21:23)
[2024-04-05] MEDS: MONTELUKAST NA 10 MG TABLET PO SCH (21:23)
[2024-04-07 07:50] LABS: BASO % 0.3 % (0-2.0); EOS % 5.1 % (0-4.5); HEMATOCRIT 25.5 % (32.4-45.2); HEMOGLOBIN 8.4 GM/dL (10.7-15.3); LYMPH % 24.7 % (8-40); MCH 30.1 pg (25.7-33.7); MCHC 33.1 g/dl (32.0-36.0); MEAN CELL VOLUME 90.8 fl (80-96); MEAN PLT VOLUME 10.7 fl (7.5-11.1); MONO % 12.5 % (3.8-10.2); NEUT % 57.4 % (42.8-82.8); PLATELET COUNT 136 10^3/uL (134-434); RDW 17.2 % (11.6-15.6); WHITE BLOOD COUNT 4.6 K/mm3 (4.0-10.0)
[2024-04-07 08:12] LABS: POTASSIUM 4.4 mmol/L (3.5-5.1)
[2024-04-07 08:15] LABS: CALCIUM 8.6 mg/dL (8.5-10.1)
[2024-04-07 08:17] LABS: BLOOD UREA NITROGEN 27.1 mg/dL (7-18)
[2024-04-07 08:19] LABS: CREATININE 1.7 mg/dL (0.55-1.3)
[2024-04-07 08:20] LABS: TOT PROT 6.2 g/dl (6.4-8.2)
[2024-04-07] MEDS: ACETAMINOPHEN 1000 MG/100 ML BAG IVPB ONE (20:21)
[2024-04-07 22:47] VITALS: RESP 18
[2024-04-07] MEDS: MAG HYDROX/AL HYDROX/SIMETH 30 ML UNIT-DOSE CUP PO ONE (23:34)
[2024-04-08] MEDS: ACETAMINOPHEN 1000 MG/100 ML BAG IVPB ONE (05:56)
[2024-04-08 07:01] VITALS: TEMP 97.9
[2024-04-08] MEDS ORDERED: KETOROLAC TROMETHAMINE 15 MG/ML VIAL IVPUSH PRN (08:52)
[2024-04-08] MEDS: MAG HYDROX/AL HYDROX/SIMETH 30 ML UNIT-DOSE CUP PO PRN (11:22)
[2024-04-08 11:58] VITALS: BP 115/65; PULSE 62
== END 2024-04-08 14:10 | disposition home or self-care (01) | DRG 378 ==
LOC: JER 14:35 → JERBED 15:33 → J7W 17:24
PROVIDERS: ADMIT Family Medicine; ATTEND Family Medicine
PROC: 30233N1 Transfusion of Nonautologous Red Blood Cells into Peripheral Vein, Percutaneous Approach (ICD-10-PCS; 2024-04-04)
PROC: 0DJ08ZZ Inspection of Upper Intestinal Tract, Via Natural or Artificial Opening Endoscopic (ICD-10-PCS; principal; 2024-04-05 11:00)
PROC: 0D568ZZ Destruction of Stomach, Via Natural or Artificial Opening Endoscopic (ICD-10-PCS; 2024-04-07)
DX: K31.811 Angiodysplasia of stomach and duodenum with bleeding (principal); D62 Acute posthemorrhagic anemia; I48.0 Paroxysmal atrial fibrillation; E03.9 Hypothyroidism, unspecified; E78.5 Hyperlipidemia, unspecified; K29.61 Other gastritis with bleeding; I12.9 Hypertensive chronic kidney disease with stage 1 through stage 4 chronic kidney disease, or unspecified chronic kidney disease; D50.9 Iron deficiency anemia, unspecified; N18.9 Chronic kidney disease, unspecified; E11.22 Type 2 diabetes mellitus with diabetic chronic kidney disease; K21.9 Gastro-esophageal reflux disease without esophagitis; K76.0 Fatty (change of) liver, not elsewhere classified; K57.90 Diverticulosis of intestine, part unspecified, without perforation or abscess without bleeding; Z95.0 Presence of cardiac pacemaker
CPT/HCPCS: 36415; 36430; 80053; 82728; 82962; 83550; 84466; 85025; 85610; 85730; 86850; 86900; 86901; 86922; 93005; 93010; 99285-25; J0131; P9058

== ENCOUNTER 2024-05-05 19:50 | Inpatient (IN) | payer OTHER ==
[2024-05-05 20:04] VITALS: BMI 27.6
[2024-05-05 20:46] LABS: BASO % 0.4 % (0-2.0); EOS % 5.7 % (0-4.5); HEMATOCRIT 20.5 % (32.4-45.2); LYMPH % 23.2 % (8-40); MCH 30.6 pg (25.7-33.7); MCHC 32.7 g/dl (32.0-36.0); MEAN CELL VOLUME 93.4 fl (80-96); MEAN PLT VOLUME 11.1 fl (7.5-11.1); MONO % 10.7 % (3.8-10.2); PLATELET COUNT 140 10^3/uL (134-434); RDW 16.3 % (11.6-15.6); WHITE BLOOD COUNT 7.2 K/mm3 (4.0-10.0)
[2024-05-05 20:48] LABS: HEMOGLOBIN 6.7 GM/dL (10.7-15.3)
[2024-05-05 20:55] LABS: INR 0.99 (0.83-1.09); PROTHROMBIN TIME (PATIENT) 11.2 SEC (9.7-13.0)
[2024-05-05 20:57] LABS: ACTIVATED PTT 31.4 SECONDS (25.2-36.5)
[2024-05-05 21:12] LABS: ALBUMIN 3.6 g/dl (3.4-5.0); BLOOD UREA NITROGEN 47.2 mg/dL (7-18); CALCIUM 8.6 mg/dL (8.5-10.1)
[2024-05-05 21:15] LABS: CREATININE 2.1 mg/dL (0.55-1.3)
[2024-05-05 21:17] LABS: BILIRUBIN,TOTAL 0.3 mg/dL (0.2-1); TOT PROT 6.4 g/dl (6.4-8.2)
[2024-05-05 21:29] LABS: POTASSIUM 4.8 mmol/L (3.5-5.1)
[2024-05-06] MEDS ORDERED: PANTOPRAZOLE SODIUM 40 MG/100 ML BAG IVPB ONE (01:41)
[2024-05-06] MEDS: PANTOPRAZOLE SODIUM 40 MG VIAL IVPUSH ONE (01:45)
[2024-05-06] MEDS: LEVOTHYROXINE NA 112 MCG TABLET (FP) PO SCH (07:29)
[2024-05-06] MEDS: amLODIPine BESYLATE 2.5 MG TABLET (FP) PO SCH (09:18)
[2024-05-06 10:44] LABS: HEMATOCRIT 23.1 % (32.4-45.2); HEMOGLOBIN 7.5 GM/dL (10.7-15.3); MCH 29.7 pg (25.7-33.7); MCHC 32.3 g/dl (32.0-36.0); MEAN CELL VOLUME 91.9 fl (80-96); MEAN PLT VOLUME 11.7 fl (7.5-11.1); PLATELET COUNT 103 10^3/uL (134-434); RBC 2.51 M/mm3 (3.60-5.2); RDW 17.4 % (11.6-15.6); WHITE BLOOD COUNT 4.5 K/mm3 (4.0-10.0)
[2024-05-06 11:17] LABS: POTASSIUM 4.5 mmol/L (3.5-5.1)
[2024-05-06 11:18] LABS: CALCIUM 8.9 mg/dL (8.5-10.1)
[2024-05-06 11:19] LABS: BLOOD UREA NITROGEN 38.9 mg/dL (7-18); MAGNESIUM 2.3 mg/dL (1.8-2.4)
[2024-05-06 11:22] LABS: CREATININE 1.6 mg/dL (0.55-1.3)
[2024-05-06] MEDS: ATORVASTATIN CA 10 MG TABLET (FP) PO SCH (21:32)
[2024-05-06] MEDS: diphenhydrAMINE HCL 25 MG CAPSULE (FP) PO ONE (21:32)
[2024-05-07] MEDS: LIDOCAINE 4% PATCH TP SCH (10:09)
[2024-05-07 10:43] LABS: POTASSIUM 4.9 mmol/L (3.5-5.1)
[2024-05-07 10:47] LABS: BASO % 0.4 % (0-2.0); EOS % 6.5 % (0-4.5); HEMATOCRIT 25.4 % (32.4-45.2); HEMOGLOBIN 8.5 GM/dL (10.7-15.3); LYMPH % 20.1 % (8-40); MCH 30.9 pg (25.7-33.7); MCHC 33.5 g/dl (32.0-36.0); MEAN CELL VOLUME 92.3 fl (80-96); MEAN PLT VOLUME 11.9 fl (7.5-11.1); MONO % 9.1 % (3.8-10.2); NEUT % 63.9 % (42.8-82.8); PLATELET COUNT 131 10^3/uL (134-434); RBC 2.75 M/mm3 (3.60-5.2); RDW 16.7 % (11.6-15.6); WHITE BLOOD COUNT 5.5 K/mm3 (4.0-10.0)
[2024-05-07 10:48] LABS: CALCIUM 8.8 mg/dL (8.5-10.1)
[2024-05-07 10:49] LABS: ALBUMIN 3.4 g/dl (3.4-5.0); BLOOD UREA NITROGEN 34.5 mg/dL (7-18)
[2024-05-07 10:52] LABS: CREATININE 1.7 mg/dL (0.55-1.3)
[2024-05-07 10:53] LABS: BILIRUBIN,TOTAL 0.6 mg/dL (0.2-1)
[2024-05-07 10:54] LABS: TOT PROT 6.5 g/dl (6.4-8.2)
[2024-05-07] MEDS: LIDOCAINE PATCH REMOVAL MC SCH (21:22)
[2024-05-08 03:59] VITALS: RESP 18
[2024-05-08 09:51] LABS: BASO % 0.4 % (0-2.0); EOS % 7.8 % (0-4.5); HEMATOCRIT 25.5 % (32.4-45.2); HEMOGLOBIN 8.3 GM/dL (10.7-15.3); LYMPH % 19.2 % (8-40); MCH 30.1 pg (25.7-33.7); MCHC 32.5 g/dl (32.0-36.0); MEAN CELL VOLUME 92.9 fl (80-96); MEAN PLT VOLUME 11.4 fl (7.5-11.1); MONO % 9.4 % (3.8-10.2); NEUT % 63.2 % (42.8-82.8); PLATELET COUNT 133 10^3/uL (134-434); RBC 2.75 M/mm3 (3.60-5.2); RDW 16.7 % (11.6-15.6); WHITE BLOOD COUNT 5.4 K/mm3 (4.0-10.0)
[2024-05-08 12:13] LABS: POTASSIUM 4.4 mmol/L (3.5-5.1)
[2024-05-08 12:15] LABS: CALCIUM 8.9 mg/dL (8.5-10.1)
[2024-05-08 12:16] LABS: ALBUMIN 3.3 g/dl (3.4-5.0); BLOOD UREA NITROGEN 34.3 mg/dL (7-18)
[2024-05-08 12:19] LABS: CREATININE 1.6 mg/dL (0.55-1.3)
[2024-05-08 12:20] LABS: BILIRUBIN,TOTAL 0.5 mg/dL (0.2-1); TOT PROT 6.1 g/dl (6.4-8.2)
[2024-05-08 12:33] LABS: ANISOCYTOSIS 0; MACROCYTOSIS 0
[2024-05-09 10:09] LABS: ERYTHROPOIETIN 14.4 mIU/mL (2.6-18.5)
[2024-05-09 15:17] LABS: HEMATOCRIT 26.5 % (32.4-45.2); HEMOGLOBIN 8.7 GM/dL (10.7-15.3); MCH 30.2 pg (25.7-33.7); MCHC 32.7 g/dl (32.0-36.0); MEAN CELL VOLUME 92.5 fl (80-96); MEAN PLT VOLUME 10.9 fl (7.5-11.1); PLATELET COUNT 143 10^3/uL (134-434); RBC 2.86 M/mm3 (3.60-5.2); RDW 16.9 % (11.6-15.6); WHITE BLOOD COUNT 5.9 K/mm3 (4.0-10.0)
[2024-05-09 15:53] LABS: POTASSIUM 4.7 mmol/L (3.5-5.1)
[2024-05-09 15:55] LABS: ALBUMIN 3.6 g/dl (3.4-5.0); BLOOD UREA NITROGEN 32.4 mg/dL (7-18); CALCIUM 9.3 mg/dL (8.5-10.1)
[2024-05-09 15:58] LABS: CREATININE 1.6 mg/dL (0.55-1.3)
[2024-05-09 16:00] LABS: BILIRUBIN,TOTAL 0.3 mg/dL (0.2-1); TOT PROT 6.8 g/dl (6.4-8.2)
[2024-05-09 18:07] LABS: FREE KAPPA,SERUM 40.8 mg/L (3.3-19.4); IG A QN SERUM. 249 mg/dL (64-422)
[2024-05-10 04:34] VITALS: BP 147/58; PULSE 67; TEMP 98.4
[2024-05-11] MEDS ORDERED: PANTOPRAZOLE 40 MG TABLET PO SCH (10:00)
== END 2024-05-10 17:31 | disposition home or self-care (01) | DRG 812 ==
LOC: JER 19:50 → JERBED 22:22 → OBSVTOIN 22:58 → J6S 05-06 04:02
PROVIDERS: ADMIT Internal Medicine; ATTEND Family Medicine
PROC: 30233N1 Transfusion of Nonautologous Red Blood Cells into Peripheral Vein, Percutaneous Approach (ICD-10-PCS; principal; 2024-05-05)
DX: D64.9 Anemia, unspecified (principal); J44.9 Chronic obstructive pulmonary disease, unspecified; I12.9 Hypertensive chronic kidney disease with stage 1 through stage 4 chronic kidney disease, or unspecified chronic kidney disease; K31.819 Angiodysplasia of stomach and duodenum without bleeding; E11.22 Type 2 diabetes mellitus with diabetic chronic kidney disease; N18.9 Chronic kidney disease, unspecified; E78.5 Hyperlipidemia, unspecified; E03.9 Hypothyroidism, unspecified; I48.0 Paroxysmal atrial fibrillation
CPT/HCPCS: 36415; 36430; 80048; 80053; 82272; 82525; 82607; 82668; 82728; 82784; 82962; 83540; 83550; 83615; 83735; 83883; 84155; 84165; 84630; 85025; 85027; 85045; 85610; 85730; 86850; 86900; 86901; 86922; 88300-TC; 93005; 93010; 99285-25; G0378; P9058